=== PATIENT | female | born 1960 | race Caucasian/White ===

== ENCOUNTER → 2016-08-18 | Outpatient (CLI) | payer BC ==
--- NOTE | 2016-08-18 15:43 | Diagnostic Imaging Report ---
PROCEDURE: MRI lumbar spine. TECHNIQUE: Multiplanar, multisequence MRI of the lumbar spine was performed without contrast. INDICATION: Chronic low back pain with left leg pain. COMPARISON: MRI of lumbar spine without contrast 11/04/2013. FINDINGS: There are 5 lumbar-type vertebral bodies presumed for the purposes of this report. Vertebral body heights are maintained. Normal alignment. Bone marrow signal is unremarkable. No abnormal signal in the conus which terminates at L1-L2. Normal configuration of the cauda equina without evidence of arachnoiditis. At L3-L4, the previously seen small left foraminal disc protrusion is stable and results in only mild left neuroforaminal narrowing. There is a new left paracentral disc protrusion at this level that results in narrowing of the left lateral recess. At L4-L5, the left paracentral disc extrusion has progressed to now be paracentral through foraminal. This now narrows the left lateral recess and contributes to moderate left neuroforaminal narrowing at this level. No other spinal canal, lateral recess or neuroforaminal narrowing in the lumbar spine. IMPRESSION: 1. A disc extrusion at L4-L5 has progressed and would account for a left L4 and L5 radiculopathy. 2. New left paracentral disc protrusion at L3-L4 may also account for a left L4 radiculopathy. Dictated by: Dictated on workstation # [id number]
== END ==
LOC: RAD 13:21
PROVIDERS: ATTEND Pain Medicine Pain Medicine
DX: M54.5 Low back pain (principal)
CPT/HCPCS: 72148

== ENCOUNTER 2016-09-15 11:03 | Outpatient (CLI) | payer BC ==
[~2016-09-15] VITALS: Ht 165.1 cm; Wt 89.8 kg
[2016-09-15] MEDS ORDERED: TRIAMCINOLONE ACET (KENALOG-40) 40 MG/ML 1 ML VIAL ONE (11:28)
[2016-09-15] MEDS ORDERED: BUPIVACAINE 0.25% 30 ML (SENSORCAINE) VIAL ONE (11:28)
[2016-09-15 11:35] VITALS: BP 124/66
[2016-09-15 12:13] VITALS: BP 109/69
--- NOTE | 2016-09-15 14:11 | Pain Medicine-Procedure ---
Procedure Pre-Op/Post-Op Diagnosis Diagnosis: disc disorder with radiculopathy, lumbar Indications for Operation Low back pain Attending Surgeon Nathan Procedure Date of Service: Sep 15, 2016 Procedure: Lumbar Epidural Steroid Injection at the L4-L5 level under Fluoroscopic Guidance Procedure: Patient was identified in the holding area. After risks, benefits, and alternatives were discussed with the patient, informed consent was obtained. Patient was brought to the fluoroscopy suite and placed prone on the procedure room table. A time out was performed. Vital signs were monitored throughout the procedure. The patients low back was prepped and draped in the usual sterile fashion. The patients skin was anesthetized using 2% Lidocaine. A Tuohy needle was inserted and advanced to the L4-L5 epidural space under fluoroscopic guidance using the loss of resistance technique and intermittent projection of fluoroscopy. There was no paresthesia with needle placement. The needle position was confirmed in both the AP and lateral view. After negative aspiration 2ml of contrast was injected under live fluoroscopy which showed good spread of the contrast in the epidural space at the appropriate level, there was no intravascular or subarachnoid spread. Again, after negative aspiration for heme or CSF, 2 ml of 0.25% Bupivicaine, 2ml of preservative free normal saline, and 80mg of Kenalog was injected. The needle was removed and a sterile bandage was placed and the patient was transferred to the recovery area in stable condition. After a brief period of observation, patient was discharged to home with no new neurological deficits and no apparent complications. Complications None MELISSA MCCORMACK MD Sep 15, 2016 2:11 pm
== END 2016-09-15 12:15 ==
LOC: CARD 11:03
PROVIDERS: ATTEND Pain Medicine Pain Medicine
DX: M51.16 Intervertebral disc disorders with radiculopathy, lumbar region (principal); M53.3 Sacrococcygeal disorders, not elsewhere classified; Z79.899 Other long term (current) drug therapy
CPT/HCPCS: 62323